=== PATIENT | male | born 1975 | race Caucasian/White ===

== ENCOUNTER 2021-01-21 22:13 | Emergency (ER) | payer OTHER, SELFPAY ==
--- NOTE | 2021-01-21 22:08 | ECG_ITS ---
APPROVED REPORT Exam: Resting ECG HR:109 bpm ECG Measurements Heart Rate 109 AXES GA 134 P QRSd 90 QRS 86 QT 344 T 105 QTc 463 Conclusion Sinus tachycardia RSR' or QR pattern in V1 suggests right ventricular conduction delay Septal infarct, age undetermined Lateral infarct, age undetermined Abnormal ECG Electronically signed by : Davonte Penny MD 01/22/2021 12:15:42
[2021-01-21 22:10] VITALS: BP 132/81; PULSE 108; RESP 16; TEMP 37.2; O2SAT 97; BMI 27.7
[2021-01-21 22:19] VITALS: BMI 28.5
--- NOTE | 2021-01-21 22:19 | CT_ITS ---
PROCEDURE INFORMATION: Exam: CT Head Without Contrast Exam date and time: 01/21/2021 10:19 PM Age: 45 years old Clinical indication: Altered mental status/memory loss; Additional info: AMS TECHNIQUE: Imaging protocol: Computed tomography of the head without contrast. Radiation optimization: All CT scans at this facility use at least one of these dose optimization techniques: automated exposure control; mA and/or kV adjustment per patient size (includes targeted exams where dose is matched to clinical indication); or iterative reconstruction. COMPARISON: No relevant prior studies available. FINDINGS: Brain: Circumscribed 8 mm high attenuation focus within the anterior right parietal lobe near the vertex (series 3, image 45). No definite intrinsic calcification. CT appearance of this finding is favored to represent a cavernoma, with intraparenchymal hematoma considered less likely (but not excluded). No surrounding cerebral edema is evident. No subdural or subarachnoid hemorrhage is seen. No loss of burr-white differentiation or evidence of acute ischemia. Cerebral ventricles: Within expected limits for age and brain volume status. No ventricular outflow obstruction. Paranasal sinuses: Please see separate maxillofacial CT. Mastoid air cells: Visualized mastoid air cells are well aerated. Bones/joints: No depressed or calvarial fracture. Soft tissues: Unremarkable. IMPRESSION: 1. Circumscribed 8 mm hyperattenuating focus in the high right parietal lobe, favored to represent a cavernoma. Differential would include intraparenchymal hematoma, but this is considered to be less likely. MRI recommended for definitive evaluation. A short-term follow-up CT study may be useful to confirm stability if MRI is not readily available. 2. Otherwise unremarkable study. THIS REPORT CONTAINS FINDINGS THAT MAY BE CRITICAL TO PATIENT CARE. The findings were verbally communicated via telephone conference with VENKATA MCWILLIAMS at 11:35 PM EST on 01/21/2021. The findings were acknowledged and understood.
--- NOTE | 2021-01-21 22:19 | CT_ITS ---
PROCEDURE INFORMATION: Exam: CT Cervical Spine Without Contrast Exam date and time: 01/21/2021 10:19 PM Age: 45 years old Clinical indication: Injury or trauma; Fall; Blunt trauma; Additional info: AMS TECHNIQUE: Imaging protocol: Computed tomography images of the cervical spine without contrast. Radiation optimization: All CT scans at this facility use at least one of these dose optimization techniques: automated exposure control; mA and/or kV adjustment per patient size (includes targeted exams where dose is matched to clinical indication); or iterative reconstruction. COMPARISON: CR XR CHEST PORTABLE 01/21/2021 10:27 PM FINDINGS: Bones/joints: No acute fracture. Nonspecific straightening and slight reversal of the normal cervical lordosis, which may relate to positioning or muscle spasm. No spondylolisthesis or uncovering of facet joints. Discs/Spinal canal/Neural foramina: No significant disc protrusion. No high-grade spinal canal or neural foraminal stenosis. Lungs: Lung apices are normal. Soft tissues: Unremarkable. IMPRESSION: 1. No acute cervical spine fracture. 2. Nonspecific straightening and slight reversal of the normal cervical lordosis.
--- NOTE | 2021-01-21 22:19 | XR_ITS ---
PROCEDURE INFORMATION: Exam: XR Chest Exam date and time: 01/21/2021 10:19 PM Age: 45 years old Clinical indication: Injury or trauma; Blunt trauma (contusions or hematomas); Patient HX: Fall, no complaints; Additional info: AMS TECHNIQUE: Imaging protocol: XR of the chest. Views: 1 view. COMPARISON: CR CXR2V XR chest 2V 02/15/2018 9:04 PM FINDINGS: Lungs: Unremarkable. No consolidation. Pleural spaces: No pleural effusion. No pneumothorax. Heart/Mediastinum: Normal heart size. Bones/joints: Unremarkable. No acute displaced fracture. IMPRESSION: No acute findings.
--- NOTE | 2021-01-21 22:19 | XR_ITS ---
PROCEDURE INFORMATION: Exam: XR Pelvis Exam date and time: 01/21/2021 10:19 PM Age: 45 years old Clinical indication: Injury or trauma; Fall; Blunt trauma (contusions or hematomas); Bilateral; Pelvic region; Additional info: AMS TECHNIQUE: Imaging protocol: XR pelvis. Views: 1 or 2 view. COMPARISON: ABDPELWO CT abdomen pelvis wo con 02/15/2018 9:14 PM FINDINGS: Bones/joints: No acute displaced fracture. No dislocation. Hip joints appear preserved. Mild lower lumbar facet degenerative changes. Soft tissues: Unremarkable. IMPRESSION: No acute findings.
[2021-01-21 22:27] LABS: Microscopic, Urine URINE MICROSCOPIC (MICROSCOPIC)
[2021-01-21 22:30] LABS: Appearance,Urine CLEAR (Clear); Blood, Urine Negative (Negative); Color,Urine STRAW (Yellow); Glucose,Urine (UA) Negative (Negative); Ketones,Urine Negative (Negative); Leukocyte Esterase,Urine Negative (Negative); Nitrate,Urine Negative (Negative); Protein,Urine TRACE (Negative); Specific Gravity, Urine >= 1.030 (1.005-1.030); Urobilinogen,Urine 0.2 EU/dl (0.2)
[2021-01-21 22:44] LABS: Acetaminophen < 10 ug/ml (10-30); Ethyl Alcohol < 10 mg/dl (0-10); Salicylate < 1.0 mg/dL (2.0-20.0)
[2021-01-21 22:44] LABS: Barbiturates Screen,Urine Negative ng/ml (<200); Benzodiazepines Screen,Urine Negative ng/ml (<200)
[2021-01-21 22:45] LABS: Cannabinoid Screen,Urine Positive ng/ml (<50); Cocaine Screen,Urine Negative ng/ml (<300)
[2021-01-21 22:46] LABS: Bilirubin,Urine Negative (Negative); Methadone Screen,Urine Negative ng/ml (<300)
[2021-01-21 22:47] LABS: Opiate Screen,Urine Negative ng/ml (<300); Phencyclidine Screen,Urine Negative ng/ml (<25)
--- NOTE | 2021-01-21 22:54 | HMH.EDAMS ---
ED Disposition Clinical Impression: Amphetamine abuse, Cerebral cavernoma Fall Qualifiers: Encounter type: initial encounter Qualified Code(s): W19.XXXA - Unspecified fall, initial encounter Abrasion of chin Qualifiers: Encounter type: initial encounter Qualified Code(s): S00.81XA - Abrasion of other part of head, initial encounter Disposition: Home, Self-Care Condition on Discharge: Good Instructions: DI for Drug or Alcohol Withdrawal Additional Instructions: call pcp for follow up Referrals: Diana Swift PA [Primary Care Provider] - - Critical Care Critical Care Time: No Attestation: On 01/21/21, the high probability of a clinically significant, sudden or life threatening deterioration of the following system(s) required my full and direct attention, intervention and personal management. The time I documented below is in addition to time spent performing reported procedures but includes the following listed in this critical care notation. Medical Decision Making - Medical Records Medical records reviewed: Yes: I reviewed the patient's medical records. - Johnny Inquiry Pt receiving controlled substance: No Vital Signs: 01/21/21 22:10 01/21/21 23:01 01/21/21 23:27 Temperature 99 F Temperature Source Oral Pulse Rate 107 H 101 H Pulse Rate [Left] 108 H Respiratory Rate 16 20 Blood Pressure 147/86 H 131/85 Blood Pressure [Right Arm] 132/81 Blood Pressure Mean 100 Blood Pressure Mean [Right Arm] 98 02 Sat by Pulse Oximetry 97 99 95 Oxygen Delivery Method Room Air Room Air 01/21/21 23:31 01/22/21 00:01 Temperature Temperature Source Pulse Rate 101 H 99 H Pulse Rate [Left] Respiratory Rate 20 16 Blood Pressure 150/83 H 147/91 H Blood Pressure [Right Arm] Blood Pressure Mean 108 109 Blood Pressure Mean [Right Arm] 02 Sat by Pulse Oximetry 95 98 Oxygen Delivery Method - Lab Data Lab results reviewed: Yes: I reviewed the patient's lab results. Lab Results 01/21/21 22:12: Salicylates < 1.0 L, Acetaminophen < 10 L 01/21/21 22:12: Plasma/Serum Alcohol < 10 01/21/21 22:14: Urine Color Straw, Urine Appearance Clear, Urine pH 6.0, Ur Specific [place] >= 1.030, Urine Protein Trace, Urine Glucose (UA) Negative, Urine Ketones Negative, Urine Blood Negative, Urine Nitrate Negative, Urine Bilirubin Negative, Urine Urobilinogen 0.2, Ur Leukocyte Esterase Negative, Urine WBC 3-5, Urine Bacteria 1+, Urine Mucus 1+ 01/21/21 22:14: Urine Opiates Screen Negative, Urine Methadone Screen Negative, Ur Barbituates Screen Negative, Ur Phencyclidine Scrn Negative, Ur Amphetamines 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[employer], U Benzodiazepines Scrn Negative, Urine Cocaine Screen Negative, U Marijuana (THC) Screen Positive H Orders (Tests/Meds): ED MEDICATIONS Generic Name Dose Route Start Last Admin Trade Name Freq PRN Reason Stop Dose Admin Sodium Chloride 1,000 mls @ 999 mls/hr 01/21/21 22:30 01/21/21 22:33 Sod Chlor 0.9% 1000ml Bag IV 01/21/21 23:30 999 mls/hr .Q1H1M TOM Administration - Radiology Data #1 Image(s): Chest, Pelvis Image Reviewed: Yes I have reviewed radiologist's interpretation Preliminary Findings: No Fracture Seen - CT Data CT Scan: Head, C-Spine, Other (facial) Time Received: 02:[address] Reviewed: Yes: I have viewed the radiologist's interpretation Preliminary Findings: Abnormal (see report ) - Reevaluation(s) Time: 02:04 Reevaluation #1: has remained stable Medical Decision Narrative: has stable exam - ct which has prob cavenoma- pt with abn uds Altered Mental Status HPI - General Chief Complaint: Altered Mental Status Stated Complaint: ams Time Seen by Provider: 01/21/21 22:55 Mode of Arrival: EMS Source of Information: Patient, Medical Record Limitations: Altered Mental Status Description of Symptoms (Recalled from ER Triage Doc. by RN): pt picked up by ems call came in as pt unconcious. he woke upon sternal rub. pt states that he rememb
[2021-01-21 23:01] VITALS: BP 147/86; PULSE 107; O2SAT 99
[2021-01-21 23:04] LABS: Bacteria,Urine 1+ /lpf; Mucus,Urine 1+ /lpf
--- NOTE | 2021-01-21 23:04 | CT_ITS ---
PROCEDURE INFORMATION: Exam: CT Maxillofacial Without Contrast Exam date and time: 01/21/2021 11:04 PM Age: 45 years old Clinical indication: Injury or trauma; Fall; Laceration; Jaw; Not specified; Patient HX: Lac to center of chin TECHNIQUE: Imaging protocol: Computed tomography images of the face without contrast. Radiation optimization: All CT scans at this facility use at least one of these dose optimization techniques: automated exposure control; mA and/or kV adjustment per patient size (includes targeted exams where dose is matched to clinical indication); or iterative reconstruction. COMPARISON: CT HEAD/BRAIN WO CON 01/21/2021 10:41 PM FINDINGS: Orbital cavity: Orbits are normal. Globes are symmetric and unremarkable. Bones/joints: No acute fracture. Paranasal sinuses: Nonaggressive mucosal thickening is present throughout the paranasal sinuses, most significantly involving the ethmoid sinuses, possibly representing chronic sinusitis. No air-fluid levels. Soft tissues: There is a subcutaneous contusion of the chin anteriorly. There may be an associated small wound site or skin blister. No evidence of a radiopaque foreign body. Dental: There is poor dentition, with scattered dental caries and periapical lucencies within the remaining mandibular teeth. Maxillary teeth are absent. IMPRESSION: 1. Subcutaneous contusion of the chin with possible associated small wound or skin blister. 2. No acute fracture.
[2021-01-21 23:27] VITALS: BP 131/85; PULSE 101; RESP 20; O2SAT 95
[2021-01-21 23:31] VITALS: BP 150/83; PULSE 101; RESP 20; O2SAT 95
[2021-01-22 00:01] VITALS: BP 147/91; PULSE 99; RESP 16; O2SAT 98
--- NOTE | 2021-01-22 01:00 | CT_ITS ---
PROCEDURE INFORMATION: Exam: CT Head Without Contrast Exam date and time: 01/22/2021 1:00 AM Age: 45 years old Clinical indication: Abnormal findings; Abnormal radiologic findings of head/skull; Not specified; Additional info: Repeat CT TECHNIQUE: Imaging protocol: Computed tomography of the head without contrast. Radiation optimization: All CT scans at this facility use at least one of these dose optimization techniques: automated exposure control; mA and/or kV adjustment per patient size (includes targeted exams where dose is matched to clinical indication); or iterative reconstruction. COMPARISON: CT HEAD/BRAIN WO CON 01/21/2021 10:41 PM FINDINGS: Brain: Unchanged 8 mm relatively round/circumscribed high attenuation focus in the high right parietal lobe. Better seen on the current exam than prior, there are a few probable punctate calcifications within this hyperattenuating focus (coronal series 2000, image 52), further supporting the likely diagnosis of a cavernoma (cavernous malformation). Cerebral ventricles: Within expected limits for age and brain volume status. No ventricular outflow obstruction. Paranasal sinuses: Unchanged mucosal thickening with probable retention cysts or polyps in the ethmoid and frontal sinuses. Mastoid air cells: Visualized mastoid air cells are well aerated. Bones/joints: No depressed or calvarial fracture. Soft tissues: Unremarkable. IMPRESSION: As compared to recent prior study of 01/21/2021, unchanged 8 mm probable cavernoma within the high right parietal lobe. When clinically feasible, MRI follow-up recommended.
[2021-01-22 02:08] VITALS: BP 149/83; PULSE 96; RESP 18; TEMP 37.2; O2SAT 97
[2021-02-06 14:12] LABS: Amphetamine Positive (.); Amphetamine (GC/MS) >3000 ng/mL (Cutoff=500); Amphetamines Positive (.); Methamphetamine Positive (.); Methamphetamine (GC/MS) >3000 ng/mL (Cutoff=500)
== END 2021-01-22 02:15 | disposition home or self-care (01) ==
PROVIDERS: Emergency Provider Emergency Medicine; PCP Physician Assistant
DX: F15.10 Other stimulant abuse, uncomplicated (principal); S00.81XA Abrasion of other part of head, initial encounter; J44.9 Chronic obstructive pulmonary disease, unspecified; K21.9 Gastro-esophageal reflux disease without esophagitis; I10 Essential (primary) hypertension; F12.10 Cannabis abuse, uncomplicated; Z79.899 Other long term (current) drug therapy
CPT/HCPCS: 12011; 70450; 70486; 71045; 72125; 72170; 80305; 80324; 80329; 81001; 93005; 99283

== ENCOUNTER 2023-03-05 11:26 | Emergency (ER) | payer OTHER, SELFPAY ==
[2023-03-05 11:27] VITALS: BP 147/94; PULSE 100; RESP 18; TEMP 36.8; O2SAT 98; BMI 27.7
--- NOTE | 2023-03-05 11:41 | US_ITS ---
FINAL REPORT TECHNIQUE: Ultrasound images of the testicles were obtained bilaterally. Color Doppler images were obtained. CLINICAL HISTORY: L testicle pain COMPARISON: None FINDINGS: The testicles measure 3.8 cm on the right and 4.2 cm on the left. Arterial flow is identified bilaterally. No intratesticular masses are identified. There is a 6 mm soft tissue focus adjacent to the left testicle of uncertain etiology. This may represent part of the epididymal head nodule adjacent to it. IMPRESSION: 6 mm soft tissue focus adjacent to the left testicle. If symptoms persist, follow-up ultrasound may be helpful. Reviewed, Interpreted and Dictated by Keith Styles III, MD Transcribed by Joselin Brewster Authenticated and [facility]
--- NOTE | 2023-03-05 11:42 | ED_ITS ---
Discharge Plan Disposition Patient Disposition: Home, Self-Care Prescriptions Prescriptions: New levofloxacin 500 mg tablet 500 mg PO DAILY 10 Days Qty: 10 0RF No Action albuterol sulfate [Ventolin HFA] 90 mcg/actuation HFA aerosol inhaler 2 puff INHALATION Q6H PRN (Reason: shortness of breath or wheezing) Qty: 6.7 2RF buprenorphine-naloxone 1 EACH film 2 each SL DAILY lisinopril 20 MG tablet 20 mg PO DAILY Referrals Follow up/Referrals: Diana Swift PA [Primary Care Provider] - See instructions Activity Restrictions/Add. Instructions Additional Instructions/Restrictions: At this time it was felt you are safe to be discharged home. If new or worsening symptoms please do not hesitate to return the emergency department. If symptoms persist please follow-up with your family doctor as you are able. Please take your medications as prescribed. For pain please take Tylenol and ibuprofen. Clinical Impressions Clinical Impression: Acute epididymitis Instructions Patient Instructions: DI for Urinary Tract Infection (UTI) Discharge ED Provider: Tayo Dumont General Adult HPI General Chief complaint: Urogenital-Male Stated complaint: Pain in groin area Time Seen by Provider: 03/05/23 11:37 History of Present Illness HPI narrative: Patient is a 47-year-old male with no pertinent comorbidities who presents to the emergency department for evaluation of testicular pain. Onset was acute, occurring since yesterday morning. Left-sided, moderate to severe in intensity. Patient denies dysuria. No other acute complaints at this time. Related Data Home Medications Medication Instructions Recorded Confirmed buprenorphine 8 mg-naloxone 2 mg 2 each SL DAILY . 01/21/21 01/21/21 sublingual film lisinopril 20 mg tablet 20 mg PO DAILY High blood pressure 01/21/21 01/21/21 Previous Rx's Medication Instructions Recorded albuterol sulfate 90 mcg/actuation 2 puff inhalation Q6H PRN 12/13/20 aerosol inhaler (Ventolin HFA) shortness of breath or wheezing #6.7 grams levofloxacin 500 mg tablet 500 mg PO DAILY 10 days #10 tabs 03/05/23 Allergies Allergy/AdvReac Type Severity Reaction Status Date / Time codeine [CODEINE] Allergy Unknown RASH, N/V Verified 12/13/20 13:32 heparin [HEPARIN] Allergy Unknown DIFF Verified 12/13/20 13:32 BREATHING PFSH PFSH Disclaimer: The information contained in this section may have been updated after the patient was seen, as this information can be updated by other users. Medical History (Updated 03/05/23 @ 12:55 by Tayo Dumont MD) Chronic pain COPD (chronic obstructive pulmonary disease) Gastroesophageal reflux disease Hypertension Neuropathy Surgical History (Updated 12/13/20 @ 14:31 by [facility] [place]) Status post open reduction with internal fixation (ORIF) of fracture of ankle Social History Smoking Status: Current every day smoker alcohol intake: never substance use type: former substance user and marijuana current occupational status: unemployed Travel in the last 8 weeks: None housing: house ROS Obtained: Yes Systems reviewed as appropriate & no additional complaints except as documented Physical Exam General General appearance: alert and in no apparent distress Head Head exam: atraumatic and normocephalic Eye Eye exam: Present PERRL and EOMI ENT ENT exam: Present mucous membranes moist Neck Neck exam: Present normal inspection Chest Chest inspection: Present normal inspection and symmetric chest wall rise Respiratory Respiratory exam: Present normal lung sounds bilaterally; Absent respiratory distress Cardiovascular Cardiovascular exam: Present regular rate and normal rhythm Abdominal Exam Abdominal exam: Present soft; Absent tenderness exam: Present other ([employer] present, left testicle is enlarged compared to the contralateral side, elevated, tender to touch. Mildly swollen left hemiscrotum.) Extremities Exam Extremities exam: Present normal inspection Neurological Exam Neurological exam: Present alert Psychiatric Psychiatric exam: Present normal affect Skin Skin exam: Present warm and dry Medical Decision Making Jhonny Inquiry Pt receiving controlled substance: No Vital Signs: 03/05/23 11:27 Temperature 98.3 F Temperature Source Oral Pulse Rate [Radial] 100 H Respiratory Rate 18 Blood Pressure [Right Arm] 147/94 H Blood Pressure Mean [Right Arm] 111 Blood Pressure Source [Right Arm] Automatic Cuff Blood Pressure Position [Right Arm] Sitting 02 Sat by Pulse Oximetry 98 Oxygen Delivery Method Room Air Lab Data Lab Results 03/05/23 11:47: Urine Color Yellow, Urine Appearance Clear, Urine pH 6.0, Ur Specific [place] >= 1.030, Urine Protein Negative, Urine Glucose (UA) Negative, Urine Ketones Negative, Urine Blood Negative, Urine Nitrate Negative, Urine Bilirubin Negative, Urine Urobilinogen 0.2, Ur Leukocyte Esterase Negative Orders (Tests/Meds): ED MEDICATIONS Discontinued Medications Generic Name Dose Route Start Last Admin Trade Name Susan PRN Reason Stop Dose Admin Acetaminophen 1,000 mg 03/05/23 11:41 03/05/23 11:44 Acetaminophen 500mg Tab PO 03/05/23 11:42 1,000 mg ONCE ONE Administration Ceftriaxone Sodium 500 mg 03/05/23 12:53 03/05/23 13:15 Ceftriaxone 500mg Vial IM 03/05/23 12:54 500 mg ONCE ONE Administration Ibuprofen 600 mg 03/05/23 11:41 03/05/23 11:44 Ibuprofen 600 Mg Tablet PO 03/05/23 11:42 600 mg ONCE ONE Administration Lidocaine HCl 0 ml 03/05/23 12:53 Lidocaine 1% 5ml Pf Vial IM 03/05/23 12:54 ONCE ONE ORDERS Category Date Time Status UA [Urinalysis and Microscopic] Stat Lab 03/05/23 11:47 Results US scrotum [US Testicular] Stat Ultrasound 03/05/23 11:41 Taken Medical Decision Narrative: In summary patient is a 47-year-old male with past medical history described above who presents emergency department for evaluation of testicular pain. Patient is hemodynamically stable nontoxic-appearing upon arrival, appearing in pain, afebrile. Differential diagnosis includes torsion, epididymitis, among others. Workup will be conducted with emergent testicular ultrasound, urinalysis. Initial inventions include Tylenol and ibuprofen. Workup reviewed by me, urinalysis dip not consistent with infection, preliminary ultrasound read shows normal testicular flow, evidence of epididymitis on the left. Given this patient will be treated empirically with ceftriaxone 500 mg intramuscular and will be discharged with a course of levofloxacin. Patient was given return precautions. Critical Care Critical Care Time Critical Care Time: No
[2023-03-05] MEDS: ACETAMINOPHEN 500MG TAB 1000 MG PO (11:44)
[2023-03-05] MEDS: IBUPROFEN 600 MG TABLET PO (11:44)
--- NOTE | 2023-03-05 11:51 | PC.NURSE ---
Pt gone for u/s via wheelchair
[2023-03-05 11:56] LABS: Appearance,Urine CLEAR (Clear); Blood, Urine Negative (Negative); Color,Urine YELLOW (Yellow); Glucose,Urine (UA) Negative (Negative); Ketones,Urine Negative (Negative); Leukocyte Esterase,Urine Negative (Negative); Microscopic, Urine URINE MICROSCOPIC (MICROSCOPIC); Nitrate,Urine Negative (Negative); Protein,Urine Negative (Negative); Specific Gravity, Urine >= 1.030 (1.005-1.030); Urobilinogen,Urine 0.2 EU/dl (0.2)
--- NOTE | 2023-03-05 12:13 | PC.NURSE ---
Pt returned from u/s
--- NOTE | 2023-03-05 12:13 | PC.NURSE ---
PT RETURNED FROM US
[2023-03-05] MEDS: cefTRIAXone 500MG VIAL 500 MG IM (13:15)
--- NOTE | 2023-03-05 13:17 | PC.NURSE ---
Spoke with Pattie in LAB. She advised 2 minutes remaining on UA
[2023-03-05 13:19] LABS: Bilirubin,Urine Negative (Negative)
[2023-03-05 13:24] VITALS: BP 139/74; PULSE 98; RESP 18; TEMP 36.8; O2SAT 98
--- NOTE | 2023-03-05 14:38 | PC.NURSE ---
message left for pt to return phone call r/t follow-up us
== END 2023-03-05 13:26 | disposition home or self-care (01) ==
PROVIDERS: Emergency Provider Emergency Medicine; PCP Physician Assistant
DX: N45.1 Epididymitis (principal); J44.9 Chronic obstructive pulmonary disease, unspecified; I10 Essential (primary) hypertension; G62.9 Polyneuropathy, unspecified; F17.200 Nicotine dependence, unspecified, uncomplicated
CPT/HCPCS: 76870; 81001; 96372; 99284; J0696